=== PATIENT | female | born 1945 | race Caucasian/White ===

== ENCOUNTER 2021-05-22 04:53 | Inpatient (IN) | payer MEDICARE ==
[2021-05-22 05:04] VITALS: BMI 17.0
[2021-05-22] MEDS ORDERED: Ondansetron PF 4 MG/2 ML Vial IVP PRN (05:45)
[2021-05-22] MEDS ORDERED: Acetaminophen 325 MG TAB PO PRN (05:45)
[2021-05-22] MEDS ORDERED: Bisacodyl 5 MG TAB PO PRN (05:45)
[2021-05-22] MEDS ORDERED: Calcium Carbonate 500 MG ChewTAB PO PRN (05:45)
[2021-05-22] MEDS ORDERED: Guaifenesin DM 100-10/5 ML UDCUP PO PRN (05:45)
[2021-05-22] MEDS ORDERED: Sodium Chloride 0.9% 1,000 ML IV SCH (06:00)
[2021-05-22] MEDS ORDERED: Levothyroxine Sodium 25 MCG TAB PO SCH (06:00)
[2021-05-22 08:06] LABS: Syphilis Antibody Nonreactive (Nonreactive); Syphilis Antibody Index 0.06 S/CO (<1.00 Non-Reactive); Thyroid Stimulating Hormone 10.259 uIU/mL (0.35-4.94)
[2021-05-22] MEDS ORDERED: Aspirin 81 mg Enteric Coated Tablet PO SCH (09:00)
[2021-05-22] MEDS ORDERED: Enoxaparin Sodium 30 MG/0.3 ML SYRINGE SC SCH (09:00)
[2021-05-22] MEDS ORDERED: Escitalopram Oxalate 20 mg Tablet PO SCH (09:00)
[2021-05-22] MEDS ORDERED: Clopidogrel Bisulfate 75 MG TAB PO SCH (09:00)
[2021-05-22] MEDS ORDERED: Amlodipine 5 MG TAB PO SCH (09:00)
[2021-05-22] MEDS: Lisinopril 10 MG TAB PO SCH (10:18)
[2021-05-22] MEDS: Calcium Carbonate 600 MG + Vit D TAB PO SCH ×2 (10:18→17:01)
[2021-05-22] MEDS: Senokot S 8.6-50 MG TAB PO SCH ×2 (10:18→21:01)
[2021-05-22] MEDS: Nicotine 21 MG PATCH TD SCH (10:22)
[2021-05-22] MEDS: Mometasone/Formoterol 200/5 60 PUFF INH SCH ×2 (10:27→18:49)
[2021-05-22 10:52] LABS: Bilirubin Neg (Negative); Blood, Urine 10 (Negative); Clarity Clear (Clear); Glucose, Urine (Dipstick) Normal (Negative); Ketone, Urine 5 mg/dL (Negative); Leukocyte Negative (Negative); Nitrite Negative (Negative); Protein, Urine (Dipstick) Negative (Neg-Trace); Specific Gravity, Urine 1.005 (1.002-1.036); Urobilinogen Normal mg/dL (Less than 2)
[2021-05-22 11:17] LABS: Bacteria/HPF 3+ HPF (None Seen); RBC/HPF 0-3 HPF (0-3); Squamous Epithelial 0-3 HPF (0-3); WBC/HPF 0-3 HPF (0-3)
[2021-05-22] MEDS: Potassium Chloride 20 MEQ TAB PO SCH (21:01)
[2021-05-23] MEDS: Levothyroxine Sodium 75 MCG TAB PO SCH (05:23)
[2021-05-23 06:56] LABS: #Monocytes 0.6 10x3/uL (0.0-1.1); #Neutrophils 6.4 10x3/uL (1.5-8.4); %Basophils 0.3 % (0.0-2.0); %Lymphocytes 11.2 % (18.0-47.0); %Monocytes 7.3 % (0.0-10.0); %Neutrophils 80.9 % (40.0-75.0); Hemoglobin 11.8 g/dL (12.0-15.5); Mean Corpuscular HGB CONC 34.5 g/dL (32.0-36.0); Mean Corpuscular Hemoglobin 32.2 pg (27.0-33.0); Mean Corpuscular Volume 93.2 fl (81.6-98.3); Mean Platelet Volume 11.6 fl (7.4-10.4); Platelet Count 212 10x3/uL (150-450); RBC Distribution Width 13.7 % (11.5-14.5); Red Blood Cell (RBC) Count 3.67 10x6/uL (3.90-5.03); White Blood Cell (WBC) Count 7.9 10x3/uL (3.5-10.5)
[2021-05-23] MEDS: Mometasone/Formoterol 200/5 60 PUFF INH SCH ×2 (07:10→19:25)
[2021-05-23 07:11] LABS: Anion Gap 11 mmol/L (10-20); BUN (Urea Nitrogen) 18 mg/dL (9.8-20.1); CK (CPK) 754 U/L (29-168); Calc. Creatinine Clearance 43 mL/min (70-130); Calcium 8.3 mg/dL (7.8-10.44); Carbon Dioxide 24 mmol/L (23-31); Chloride 108 mmol/L (98-107); Glucose 98 mg/dL (83-110); Potassium 3.4 mmol/L (3.5-5.1); Sodium 140 mmol/L (136-145)
[2021-05-23] MEDS: Rosuvastatin 10 MG TAB PO SCH (09:56)
[2021-05-23] MEDS: Calcium Carbonate 600 MG + Vit D TAB PO SCH ×2 (09:56→16:31)
[2021-05-23] MEDS: Lisinopril 10 MG TAB PO SCH (09:56)
[2021-05-23] MEDS: Clopidogrel Bisulfate 75 MG TAB PO SCH (09:57)
[2021-05-23] MEDS: Senokot S 8.6-50 MG TAB PO SCH ×2 (09:57→20:31)
[2021-05-23] MEDS: Aspirin 81 mg Enteric Coated Tablet PO SCH (09:57)
[2021-05-23] MEDS: Potassium Chloride 20 MEQ TAB PO SCH ×2 (09:57→20:31)
[2021-05-23] MEDS: Folic Acid 1 MG TAB PO SCH (09:57)
[2021-05-23] MEDS: Escitalopram Oxalate 20 mg Tablet PO SCH (09:57)
[2021-05-23] MEDS: Nicotine 21 MG PATCH TD SCH (09:57)
[2021-05-23] MEDS: Amlodipine 5 MG TAB PO SCH (10:03)
[2021-05-24] MEDS: Levothyroxine Sodium 75 MCG TAB PO SCH (05:40)
[2021-05-24] MEDS: Mometasone/Formoterol 200/5 60 PUFF INH SCH ×2 (07:20→18:39)
[2021-05-24] MEDS: Nicotine 21 MG PATCH TD SCH (10:10)
[2021-05-24] MEDS: Amlodipine 5 MG TAB PO SCH (10:10)
[2021-05-24] MEDS: Senokot S 8.6-50 MG TAB PO SCH ×2 (10:10→21:19)
[2021-05-24] MEDS: Clopidogrel Bisulfate 75 MG TAB PO SCH (10:11)
[2021-05-24] MEDS: Rosuvastatin 10 MG TAB PO SCH (10:11)
[2021-05-24] MEDS: Folic Acid 1 MG TAB PO SCH (10:11)
[2021-05-24] MEDS: Escitalopram Oxalate 20 mg Tablet PO SCH (10:11)
[2021-05-24] MEDS: Aspirin 81 mg Enteric Coated Tablet PO SCH (10:11)
[2021-05-24] MEDS: Potassium Chloride 20 MEQ TAB PO SCH ×2 (10:11→20:29)
[2021-05-24] MEDS: Calcium Carbonate 600 MG + Vit D TAB PO SCH ×2 (10:12→17:54)
[2021-05-24] MEDS: Lisinopril 10 MG TAB PO SCH (10:21)
[2021-05-24] MEDS ORDERED: Fosfomycin 3 GM/Packet PO SCH (11:00)
[2021-05-24] MEDS: Melatonin 3 MG TAB PO SCH (20:29)
[2021-05-25] MEDS: Levothyroxine Sodium 100 MCG TAB PO SCH (05:54)
[2021-05-25] MEDS: Mometasone/Formoterol 200/5 60 PUFF INH SCH ×2 (07:20→18:50)
[2021-05-25] MEDS: Amlodipine 5 MG TAB PO SCH (10:50)
[2021-05-25] MEDS: Clopidogrel Bisulfate 75 MG TAB PO SCH (10:50)
[2021-05-25] MEDS: Aspirin 81 mg Enteric Coated Tablet PO SCH (10:50)
[2021-05-25] MEDS: Folic Acid 1 MG TAB PO SCH (10:50)
[2021-05-25] MEDS: Calcium Carbonate 600 MG + Vit D TAB PO SCH ×2 (10:50→20:56)
[2021-05-25] MEDS: Escitalopram Oxalate 20 mg Tablet PO SCH (10:50)
[2021-05-25] MEDS: Lisinopril 10 MG TAB PO SCH (10:51)
[2021-05-25] MEDS: Nicotine 21 MG PATCH TD SCH ×2 (10:51→15:49)
[2021-05-25] MEDS: Potassium Chloride 20 MEQ TAB PO SCH ×2 (10:51→20:56)
[2021-05-25] MEDS: Rosuvastatin 10 MG TAB PO SCH (10:51)
[2021-05-25] MEDS: Senokot S 8.6-50 MG TAB PO SCH ×2 (10:52→21:14)
[2021-05-25] MEDS ORDERED: Lorazepam 2 MG/ML VIAL SLOW IVP SCH ×2 (12:45→15:15)
[2021-05-25] MEDS ORDERED: Lorazepam 2 MG/ML VIAL ONE (14:37)
[2021-05-25 14:53] LABS: Hemoglobin 11.9 g/dL (12.0-15.5); Mean Corpuscular HGB CONC 33.5 g/dL (32.0-36.0); Mean Corpuscular Hemoglobin 31.8 pg (27.0-33.0); Mean Corpuscular Volume 94.9 fl (81.6-98.3); Mean Platelet Volume 11.9 fl (7.4-10.4); Platelet Count 223 10x3/uL (150-450); RBC Distribution Width 13.7 % (11.5-14.5); Red Blood Cell (RBC) Count 3.74 10x6/uL (3.90-5.03); White Blood Cell (WBC) Count 8.7 10x3/uL (3.5-10.5)
[2021-05-25 15:06] LABS: ALT (SGPT) 40 U/L (8-55); AST (SGOT) 55 U/L (5-34); Albumin 3.6 g/dL (3.4-4.8); Alkaline Phosphatase 56 U/L (40-110); Anion Gap 10 mmol/L (10-20); BUN (Urea Nitrogen) 14 mg/dL (9.8-20.1); Bilirubin, Total 0.4 mg/dL (0.2-1.2); Calc. Creatinine Clearance 42 mL/min (70-130); Calcium 8.8 mg/dL (7.8-10.44); Carbon Dioxide 28 mmol/L (23-31); Chloride 105 mmol/L (98-107); Globulin 2.2 g/dL (2.4-3.5); Glucose 90 mg/dL (83-110); Magnesium 1.7 mg/dL (1.6-2.6); Phosphorus 2.4 mg/dL (2.3-4.7); Potassium 4.4 mmol/L (3.5-5.1); Protein, Total 5.8 g/dL (5.8-8.1); Sodium 139 mmol/L (136-145)
[2021-05-25] MEDS ORDERED: levETIRAcetam 1,500 MG, Admixture Fee 1 EACH in Sodium Chloride 0.9% 100 ML IVPB SCH (15:30)
[2021-05-25] MEDS ORDERED: levETIRAcetam in NS 1,500 MG in Premix Bag 1 BAG IVPB SCH (15:30)
[2021-05-25] MEDS ORDERED: Magnesium 2 GM/50 ML(in water) 2 GM in Premix Bag 1 BAG IVPB SCH (15:45)
[2021-05-25] MEDS: Nitrofurantoin Macrocrystal 50 MG CAP PO SCH (20:56)
[2021-05-25] MEDS: Lorazepam 1 MG TAB PO SCH (20:57)
[2021-05-25] MEDS: Melatonin 3 MG TAB PO SCH (20:57)
[2021-05-26] MEDS: Mometasone/Formoterol 200/5 60 PUFF INH SCH ×2 (05:10→18:31)
[2021-05-26] MEDS: Levothyroxine Sodium 100 MCG TAB PO SCH (05:46)
[2021-05-26 06:35] LABS: #Eosinphils 0.1 10x3/uL (0.0-0.5); #Monocytes 0.7 10x3/uL (0.0-1.1); #Neutrophils 4.5 10x3/uL (1.5-8.4); %Basophils 0.5 % (0.0-2.0); %Eosinophils 1.7 % (0.0-6.0); %Lymphocytes 17.9 % (18.0-47.0); %Monocytes 10.3 % (0.0-10.0); %Neutrophils 69.3 % (40.0-75.0); Mean Corpuscular HGB CONC 34.6 g/dL (32.0-36.0); Mean Corpuscular Hemoglobin 32.4 pg (27.0-33.0); Mean Corpuscular Volume 93.8 fl (81.6-98.3); Mean Platelet Volume 11.4 fl (7.4-10.4); Platelet Count 201 10x3/uL (150-450); Red Blood Cell (RBC) Count 3.39 10x6/uL (3.90-5.03); White Blood Cell (WBC) Count 6.4 10x3/uL (3.5-10.5)
[2021-05-26 06:44] LABS: ALT (SGPT) 35 U/L (8-55); AST (SGOT) 39 U/L (5-34); Albumin 3.3 g/dL (3.4-4.8); Alkaline Phosphatase 51 U/L (40-110); Anion Gap 10 mmol/L (10-20); BUN (Urea Nitrogen) 13 mg/dL (9.8-20.1); Bilirubin, Total 0.4 mg/dL (0.2-1.2); Calc. Creatinine Clearance 43 mL/min (70-130); Calcium 8.7 mg/dL (7.8-10.44); Carbon Dioxide 27 mmol/L (23-31); Chloride 105 mmol/L (98-107); Glucose 91 mg/dL (83-110); Magnesium 2.2 mg/dL (1.6-2.6); Phosphorus 2.4 mg/dL (2.3-4.7); Potassium 4.2 mmol/L (3.5-5.1); Protein, Total 5.3 g/dL (5.8-8.1); Sodium 138 mmol/L (136-145)
[2021-05-26 07:07] LABS: HIV (1/2) Antibody/Antigen Non-Reactive (NonReactive); HIV 1/2 INDEX 0.07 S/CO (<1.00)
[2021-05-26] MEDS: Calcium Carbonate 600 MG + Vit D TAB PO SCH ×2 (11:21→18:27)
[2021-05-26] MEDS: Amlodipine 5 MG TAB PO SCH (11:21)
[2021-05-26] MEDS: Aspirin 81 mg Enteric Coated Tablet PO SCH (11:22)
[2021-05-26] MEDS: Clopidogrel Bisulfate 75 MG TAB PO SCH (11:22)
[2021-05-26] MEDS: Enoxaparin Sodium 30 MG/0.3 ML SYRINGE SC SCH (11:23)
[2021-05-26] MEDS: Folic Acid 1 MG TAB PO SCH (11:24)
[2021-05-26] MEDS: Escitalopram Oxalate 20 mg Tablet PO SCH (11:24)
[2021-05-26] MEDS: levETIRAcetam 500 MG in Sodium Chloride 0.9% 100 ML IVPB SCH ×2 (11:25→21:21)
[2021-05-26] MEDS: Lisinopril 10 MG TAB PO SCH (11:27)
[2021-05-26] MEDS: Lorazepam 1 MG TAB PO SCH ×2 (11:27→21:22)
[2021-05-26] MEDS: Nicotine 21 MG PATCH TD SCH (11:28)
[2021-05-26] MEDS: Nitrofurantoin Macrocrystal 50 MG CAP PO SCH ×2 (11:28→21:22)
[2021-05-26] MEDS: Potassium Chloride 20 MEQ TAB PO SCH ×2 (11:28→21:22)
[2021-05-26] MEDS: Rosuvastatin 10 MG TAB PO SCH (11:29)
[2021-05-26] MEDS: Senokot S 8.6-50 MG TAB PO SCH ×2 (11:54→21:23)
[2021-05-26] MEDS ORDERED: Cyanocobalamin 1000 MCG/ML VIAL IM SCH (15:45)
[2021-05-26] MEDS: Cyanocobalamin 1000 MCG/ML VIAL IM SCH (18:27)
[2021-05-26] MEDS: Melatonin 3 MG TAB PO SCH (21:22)
[2021-05-27 05:50] LABS: #Eosinphils 0.1 10x3/uL (0.0-0.5); #Monocytes 0.6 10x3/uL (0.0-1.1); #Neutrophils 3.4 10x3/uL (1.5-8.4); %Basophils 0.6 % (0.0-2.0); %Eosinophils 2.3 % (0.0-6.0); %Monocytes 10.5 % (0.0-10.0); %Neutrophils 65.4 % (40.0-75.0); Hemoglobin 10.7 g/dL (12.0-15.5); Mean Corpuscular HGB CONC 34.4 g/dL (32.0-36.0); Mean Corpuscular Hemoglobin 32.4 pg (27.0-33.0); Mean Corpuscular Volume 94.2 fl (81.6-98.3); Mean Platelet Volume 11.5 fl (7.4-10.4); Platelet Count 205 10x3/uL (150-450); White Blood Cell (WBC) Count 5.2 10x3/uL (3.5-10.5)
[2021-05-27 06:03] LABS: Anion Gap 10 mmol/L (10-20); BUN (Urea Nitrogen) 17 mg/dL (9.8-20.1); Calc. Creatinine Clearance 40 mL/min (70-130); Calcium 8.6 mg/dL (7.8-10.44); Carbon Dioxide 27 mmol/L (23-31); Chloride 107 mmol/L (98-107); Glucose 96 mg/dL (83-110); Phosphorus 2.4 mg/dL (2.3-4.7); Potassium 4.3 mmol/L (3.5-5.1); Sodium 140 mmol/L (136-145)
[2021-05-27] MEDS: Levothyroxine Sodium 100 MCG TAB PO SCH (06:22)
[2021-05-27] MEDS: Mometasone/Formoterol 200/5 60 PUFF INH SCH ×2 (07:45→19:09)
[2021-05-27] MEDS: Senokot S 8.6-50 MG TAB PO SCH ×3 (09:02→22:54)
[2021-05-27] MEDS: Rosuvastatin 10 MG TAB PO SCH (09:03)
[2021-05-27] MEDS: Escitalopram Oxalate 20 mg Tablet PO SCH (09:03)
[2021-05-27] MEDS: Clopidogrel Bisulfate 75 MG TAB PO SCH (09:03)
[2021-05-27] MEDS: Folic Acid 1 MG TAB PO SCH (09:03)
[2021-05-27] MEDS: Aspirin 81 mg Enteric Coated Tablet PO SCH (09:03)
[2021-05-27] MEDS: Potassium Chloride 20 MEQ TAB PO SCH ×2 (09:04→20:58)
[2021-05-27] MEDS: Calcium Carbonate 600 MG + Vit D TAB PO SCH ×2 (09:04→16:51)
[2021-05-27] MEDS: Amlodipine 5 MG TAB PO SCH (09:04)
[2021-05-27] MEDS: Enoxaparin Sodium 30 MG/0.3 ML SYRINGE SC SCH (09:05)
[2021-05-27] MEDS: Nicotine 21 MG PATCH TD SCH (09:05)
[2021-05-27] MEDS: Lisinopril 10 MG TAB PO SCH (09:05)
[2021-05-27] MEDS: Nitrofurantoin Macrocrystal 50 MG CAP PO SCH ×2 (09:05→20:57)
[2021-05-27] MEDS: levETIRAcetam 500 MG in Sodium Chloride 0.9% 100 ML IVPB SCH ×2 (09:06→21:00)
[2021-05-27] MEDS: Lorazepam 1 MG TAB PO SCH ×2 (09:06→20:58)
[2021-05-27] MEDS: Melatonin 3 MG TAB PO SCH (20:58)
[2021-05-28 05:39] LABS: #Eosinphils 0.1 10x3/uL (0.0-0.5); #Monocytes 0.6 10x3/uL (0.0-1.1); #Neutrophils 3.8 10x3/uL (1.5-8.4); %Basophils 0.5 % (0.0-2.0); %Eosinophils 1.6 % (0.0-6.0); %Lymphocytes 20.4 % (18.0-47.0); %Monocytes 10.7 % (0.0-10.0); %Neutrophils 66.6 % (40.0-75.0); Hemoglobin 10.6 g/dL (12.0-15.5); Mean Corpuscular HGB CONC 33.8 g/dL (32.0-36.0); Mean Corpuscular Hemoglobin 32.1 pg (27.0-33.0); Mean Corpuscular Volume 95.2 fl (81.6-98.3); Platelet Count 224 10x3/uL (150-450); RBC Distribution Width 14.2 % (11.5-14.5); White Blood Cell (WBC) Count 5.7 10x3/uL (3.5-10.5)
[2021-05-28 06:09] LABS: Anion Gap 11 mmol/L (10-20); BUN (Urea Nitrogen) 22 mg/dL (9.8-20.1); Calc. Creatinine Clearance 39 mL/min (70-130); Calcium 9.1 mg/dL (7.8-10.44); Carbon Dioxide 27 mmol/L (23-31); Chloride 104 mmol/L (98-107); Glucose 93 mg/dL (83-110); Magnesium 1.9 mg/dL (1.6-2.6); Phosphorus 2.9 mg/dL (2.3-4.7); Potassium 4.5 mmol/L (3.5-5.1); Sodium 137 mmol/L (136-145)
[2021-05-28] MEDS: Levothyroxine Sodium 100 MCG TAB PO SCH (06:12)
[2021-05-28] MEDS: Mometasone/Formoterol 200/5 60 PUFF INH SCH ×2 (09:05→19:20)
[2021-05-28] MEDS: Calcium Carbonate 600 MG + Vit D TAB PO SCH ×2 (09:19→17:02)
[2021-05-28] MEDS: Escitalopram Oxalate 20 mg Tablet PO SCH (09:20)
[2021-05-28] MEDS: Aspirin 81 mg Enteric Coated Tablet PO SCH (09:20)
[2021-05-28] MEDS: Rosuvastatin 10 MG TAB PO SCH (09:20)
[2021-05-28] MEDS: Lorazepam 1 MG TAB PO SCH ×2 (09:21→20:56)
[2021-05-28] MEDS: Nitrofurantoin Macrocrystal 50 MG CAP PO SCH ×2 (09:22→20:56)
[2021-05-28] MEDS: Folic Acid 1 MG TAB PO SCH (09:23)
[2021-05-28] MEDS: Lisinopril 10 MG TAB PO SCH (09:23)
[2021-05-28] MEDS: Potassium Chloride 20 MEQ TAB PO SCH ×2 (09:23→20:56)
[2021-05-28] MEDS: Amlodipine 5 MG TAB PO SCH (09:23)
[2021-05-28] MEDS: Enoxaparin Sodium 30 MG/0.3 ML SYRINGE SC SCH (09:24)
[2021-05-28] MEDS: levETIRAcetam 500 MG in Sodium Chloride 0.9% 100 ML IVPB SCH ×2 (09:25→21:01)
[2021-05-28] MEDS: Senokot S 8.6-50 MG TAB PO SCH ×2 (09:26→21:27)
[2021-05-28] MEDS: Clopidogrel Bisulfate 75 MG TAB PO SCH (09:27)
[2021-05-28] MEDS: Nicotine 21 MG PATCH TD SCH (12:04)
[2021-05-28] MEDS: Cyanocobalamin 1000 MCG/ML VIAL IM SCH (17:03)
[2021-05-28] MEDS: Melatonin 3 MG TAB PO SCH (20:56)
[2021-05-29 05:40] LABS: #Eosinphils 0.1 10x3/uL (0.0-0.5); #Monocytes 0.6 10x3/uL (0.0-1.1); #Neutrophils 3.7 10x3/uL (1.5-8.4); %Basophils 0.5 % (0.0-2.0); %Eosinophils 2.2 % (0.0-6.0); %Lymphocytes 19.2 % (18.0-47.0); %Monocytes 11.3 % (0.0-10.0); %Neutrophils 66.4 % (40.0-75.0); Hemoglobin 10.9 g/dL (12.0-15.5); Mean Corpuscular HGB CONC 34.2 g/dL (32.0-36.0); Mean Corpuscular Hemoglobin 32.2 pg (27.0-33.0); Mean Corpuscular Volume 94.4 fl (81.6-98.3); Mean Platelet Volume 11.8 fl (7.4-10.4); Platelet Count 257 10x3/uL (150-450); RBC Distribution Width 14.2 % (11.5-14.5); Red Blood Cell (RBC) Count 3.38 10x6/uL (3.90-5.03); White Blood Cell (WBC) Count 5.6 10x3/uL (3.5-10.5)
[2021-05-29 05:50] LABS: Anion Gap 13 mmol/L (10-20); BUN (Urea Nitrogen) 22 mg/dL (9.8-20.1); Calc. Creatinine Clearance 43 mL/min (70-130); Calcium 9.1 mg/dL (7.8-10.44); Carbon Dioxide 24 mmol/L (23-31); Chloride 105 mmol/L (98-107); Glucose 96 mg/dL (83-110); Magnesium 1.8 mg/dL (1.6-2.6); Phosphorus 3.9 mg/dL (2.3-4.7); Potassium 4.7 mmol/L (3.5-5.1); Sodium 137 mmol/L (136-145)
[2021-05-29] MEDS: Levothyroxine Sodium 100 MCG TAB PO SCH (06:20)
[2021-05-29] MEDS: Mometasone/Formoterol 200/5 60 PUFF INH SCH ×2 (07:35→19:50)
[2021-05-29] MEDS: Folic Acid 1 MG TAB PO SCH (09:25)
[2021-05-29] MEDS: Clopidogrel Bisulfate 75 MG TAB PO SCH (09:25)
[2021-05-29] MEDS: Potassium Chloride 20 MEQ TAB PO SCH ×2 (09:25→20:24)
[2021-05-29] MEDS: Nitrofurantoin Macrocrystal 50 MG CAP PO SCH ×2 (09:25→20:23)
[2021-05-29] MEDS: Rosuvastatin 10 MG TAB PO SCH (09:25)
[2021-05-29] MEDS: Aspirin 81 mg Enteric Coated Tablet PO SCH (09:26)
[2021-05-29] MEDS: Amlodipine 5 MG TAB PO SCH (09:26)
[2021-05-29] MEDS: Lorazepam 1 MG TAB PO SCH ×2 (09:26→20:24)
[2021-05-29] MEDS: Calcium Carbonate 600 MG + Vit D TAB PO SCH ×2 (09:26→18:07)
[2021-05-29] MEDS: Escitalopram Oxalate 20 mg Tablet PO SCH (09:27)
[2021-05-29] MEDS: Lisinopril 10 MG TAB PO SCH (09:27)
[2021-05-29] MEDS: levETIRAcetam 500 MG in Sodium Chloride 0.9% 100 ML IVPB SCH ×2 (09:27→20:23)
[2021-05-29] MEDS: Enoxaparin Sodium 30 MG/0.3 ML SYRINGE SC SCH (09:27)
[2021-05-29] MEDS: Senokot S 8.6-50 MG TAB PO SCH ×2 (09:28→20:24)
[2021-05-29] MEDS: Nicotine 21 MG PATCH TD SCH (12:14)
[2021-05-29] MEDS: Melatonin 3 MG TAB PO SCH (20:24)
[2021-05-30 05:08] LABS: #Eosinphils 0.1 10x3/uL (0.0-0.5); #Monocytes 0.7 10x3/uL (0.0-1.1); #Neutrophils 3.8 10x3/uL (1.5-8.4); %Basophils 0.5 % (0.0-2.0); %Eosinophils 2.3 % (0.0-6.0); %Lymphocytes 17.5 % (18.0-47.0); %Monocytes 12.8 % (0.0-10.0); %Neutrophils 66.6 % (40.0-75.0); Hemoglobin 10.9 g/dL (12.0-15.5); Mean Corpuscular HGB CONC 34.7 g/dL (32.0-36.0); Mean Corpuscular Hemoglobin 33.2 pg (27.0-33.0); Mean Corpuscular Volume 95.7 fl (81.6-98.3); Mean Platelet Volume 11.9 fl (7.4-10.4); Platelet Count 252 10x3/uL (150-450); RBC Distribution Width 14.4 % (11.5-14.5); Red Blood Cell (RBC) Count 3.28 10x6/uL (3.90-5.03); White Blood Cell (WBC) Count 5.8 10x3/uL (3.5-10.5)
[2021-05-30 05:09] LABS: Anion Gap 11 mmol/L (10-20); BUN (Urea Nitrogen) 24 mg/dL (9.8-20.1); Calc. Creatinine Clearance 40 mL/min (70-130); Calcium 9.5 mg/dL (7.8-10.44); Carbon Dioxide 27 mmol/L (23-31); Chloride 103 mmol/L (98-107); Glucose 95 mg/dL (83-110); Magnesium 1.9 mg/dL (1.6-2.6); Phosphorus 4.4 mg/dL (2.3-4.7); Sodium 136 mmol/L (136-145)
[2021-05-30] MEDS: Levothyroxine Sodium 100 MCG TAB PO SCH (05:29)
[2021-05-30] MEDS: Mometasone/Formoterol 200/5 60 PUFF INH SCH ×2 (06:51→20:02)
[2021-05-30] MEDS: Calcium Carbonate 600 MG + Vit D TAB PO SCH ×2 (08:43→17:52)
[2021-05-30] MEDS: Lisinopril 10 MG TAB PO SCH (08:43)
[2021-05-30] MEDS: Enoxaparin Sodium 40 MG/0.4 ML SYRINGE SC SCH (08:43)
[2021-05-30] MEDS: levETIRAcetam 500 MG in Sodium Chloride 0.9% 100 ML IVPB SCH (08:43)
[2021-05-30] MEDS: Amlodipine 5 MG TAB PO SCH (08:43)
[2021-05-30] MEDS: Clopidogrel Bisulfate 75 MG TAB PO SCH (08:43)
[2021-05-30] MEDS: Lorazepam 1 MG TAB PO SCH ×2 (08:43→20:22)
[2021-05-30] MEDS: Folic Acid 1 MG TAB PO SCH (08:43)
[2021-05-30] MEDS: Escitalopram Oxalate 20 mg Tablet PO SCH (08:43)
[2021-05-30] MEDS: Aspirin 81 mg Enteric Coated Tablet PO SCH (08:43)
[2021-05-30] MEDS: Senokot S 8.6-50 MG TAB PO SCH ×2 (08:44→20:21)
[2021-05-30] MEDS: Nitrofurantoin Macrocrystal 50 MG CAP PO SCH (08:44)
[2021-05-30] MEDS: Rosuvastatin 10 MG TAB PO SCH (08:44)
[2021-05-30] MEDS: Nicotine 21 MG PATCH TD SCH (08:44)
[2021-05-30] MEDS: Cyanocobalamin 1000 MCG/ML VIAL IM SCH (17:52)
[2021-05-30] MEDS: levETIRAcetam 500 MG TAB PO SCH (20:21)
[2021-05-30] MEDS: Melatonin 3 MG TAB PO SCH (20:22)
[2021-05-31 03:56] LABS: #Eosinphils 0.1 10x3/uL (0.0-0.5); #Monocytes 0.7 10x3/uL (0.0-1.1); #Neutrophils 3.8 10x3/uL (1.5-8.4); %Basophils 0.5 % (0.0-2.0); %Eosinophils 2.1 % (0.0-6.0); %Lymphocytes 17.5 % (18.0-47.0); %Monocytes 12.8 % (0.0-10.0); %Neutrophils 66.7 % (40.0-75.0); Hemoglobin 10.8 g/dL (12.0-15.5); Mean Corpuscular HGB CONC 34.5 g/dL (32.0-36.0); Mean Corpuscular Hemoglobin 32.8 pg (27.0-33.0); Mean Corpuscular Volume 95.1 fl (81.6-98.3); Mean Platelet Volume 11.4 fl (7.4-10.4); Platelet Count 282 10x3/uL (150-450); RBC Distribution Width 14.4 % (11.5-14.5); Red Blood Cell (RBC) Count 3.29 10x6/uL (3.90-5.03); White Blood Cell (WBC) Count 5.7 10x3/uL (3.5-10.5)
[2021-05-31 04:20] LABS: Anion Gap 12 mmol/L (10-20); BUN (Urea Nitrogen) 27 mg/dL (9.8-20.1); Calc. Creatinine Clearance 41 mL/min (70-130); Calcium 9.3 mg/dL (7.8-10.44); Carbon Dioxide 27 mmol/L (23-31); Chloride 104 mmol/L (98-107); Glucose 93 mg/dL (83-110); Magnesium 1.9 mg/dL (1.6-2.6); Phosphorus 4.1 mg/dL (2.3-4.7); Potassium 4.6 mmol/L (3.5-5.1); Sodium 138 mmol/L (136-145)
[2021-05-31] MEDS: Levothyroxine Sodium 100 MCG TAB PO SCH (05:44)
[2021-05-31] MEDS: Mometasone/Formoterol 200/5 60 PUFF INH SCH ×2 (07:50→19:50)
[2021-05-31] MEDS: Nitrofurantoin Macrocrystal 50 MG CAP PO SCH (09:56)
[2021-05-31] MEDS: Folic Acid 1 MG TAB PO SCH (09:56)
[2021-05-31] MEDS: Rosuvastatin 10 MG TAB PO SCH (09:56)
[2021-05-31] MEDS: Aspirin 81 mg Enteric Coated Tablet PO SCH (09:58)
[2021-05-31] MEDS: levETIRAcetam 500 MG TAB PO SCH ×2 (09:58→20:24)
[2021-05-31] MEDS: Amlodipine 5 MG TAB PO SCH (09:58)
[2021-05-31] MEDS: Calcium Carbonate 600 MG + Vit D TAB PO SCH ×2 (09:58→18:35)
[2021-05-31] MEDS: Lorazepam 1 MG TAB PO SCH ×2 (09:58→20:24)
[2021-05-31] MEDS: Enoxaparin Sodium 40 MG/0.4 ML SYRINGE SC SCH (09:59)
[2021-05-31] MEDS: Senokot S 8.6-50 MG TAB PO SCH ×2 (10:10→20:24)
[2021-05-31] MEDS: Escitalopram Oxalate 20 mg Tablet PO SCH (10:10)
[2021-05-31] MEDS: Nicotine 21 MG PATCH TD SCH (10:24)
[2021-05-31] MEDS: Melatonin 3 MG TAB PO SCH (20:24)
[2021-06-01 04:49] LABS: #Eosinphils 0.1 10x3/uL (0.0-0.5); #Monocytes 0.7 10x3/uL (0.0-1.1); #Neutrophils 3.7 10x3/uL (1.5-8.4); %Basophils 0.6 % (0.0-2.0); %Eosinophils 1.7 % (0.0-6.0); %Lymphocytes 17.1 % (18.0-47.0); %Monocytes 12.5 % (0.0-10.0); %Neutrophils 67.7 % (40.0-75.0); Hemoglobin 10.5 g/dL (12.0-15.5); Mean Corpuscular HGB CONC 34.1 g/dL (32.0-36.0); Mean Corpuscular Hemoglobin 32.7 pg (27.0-33.0); Mean Platelet Volume 11.1 fl (7.4-10.4); Platelet Count 273 10x3/uL (150-450); RBC Distribution Width 14.4 % (11.5-14.5); Red Blood Cell (RBC) Count 3.21 10x6/uL (3.90-5.03); White Blood Cell (WBC) Count 5.4 10x3/uL (3.5-10.5)
[2021-06-01] MEDS: Levothyroxine Sodium 100 MCG TAB PO SCH (05:37)
[2021-06-01 06:09] LABS: Anion Gap 12 mmol/L (10-20); BUN (Urea Nitrogen) 28 mg/dL (9.8-20.1); Calc. Creatinine Clearance 40 mL/min (70-130); Calcium 9.1 mg/dL (7.8-10.44); Carbon Dioxide 26 mmol/L (23-31); Chloride 103 mmol/L (98-107); Glucose 89 mg/dL (83-110); Magnesium 1.9 mg/dL (1.6-2.6); Phosphorus 3.8 mg/dL (2.3-4.7); Potassium 4.4 mmol/L (3.5-5.1); Sodium 137 mmol/L (136-145)
[2021-06-01] MEDS: Mometasone/Formoterol 200/5 60 PUFF INH SCH ×2 (07:55→21:55)
[2021-06-01] MEDS: levETIRAcetam 500 MG TAB PO SCH ×2 (09:33→20:54)
[2021-06-01] MEDS: Lorazepam 1 MG TAB PO SCH ×2 (09:33→20:54)
[2021-06-01] MEDS: Nitrofurantoin Macrocrystal 50 MG CAP PO SCH (09:33)
[2021-06-01] MEDS: Folic Acid 1 MG TAB PO SCH (09:33)
[2021-06-01] MEDS: Aspirin 81 mg Enteric Coated Tablet PO SCH (09:33)
[2021-06-01] MEDS: Rosuvastatin 10 MG TAB PO SCH (09:34)
[2021-06-01] MEDS: Senokot S 8.6-50 MG TAB PO SCH ×3 (09:34→20:53)
[2021-06-01] MEDS: Amlodipine 5 MG TAB PO SCH (09:34)
[2021-06-01] MEDS: Enoxaparin Sodium 40 MG/0.4 ML SYRINGE SC SCH (09:35)
[2021-06-01] MEDS: Nicotine 21 MG PATCH TD SCH (09:38)
[2021-06-01] MEDS: Escitalopram Oxalate 20 mg Tablet PO SCH (09:38)
[2021-06-01] MEDS: Cyanocobalamin 1000 MCG/ML VIAL IM SCH (17:43)
[2021-06-01] MEDS: Melatonin 3 MG TAB PO SCH (20:53)
[2021-06-02 03:55] LABS: #Eosinphils 0.1 10x3/uL (0.0-0.5); #Monocytes 0.7 10x3/uL (0.0-1.1); #Neutrophils 3.8 10x3/uL (1.5-8.4); %Basophils 0.5 % (0.0-2.0); %Eosinophils 2.1 % (0.0-6.0); %Lymphocytes 18.1 % (18.0-47.0); %Monocytes 11.7 % (0.0-10.0); %Neutrophils 67.2 % (40.0-75.0); Hemoglobin 10.2 g/dL (12.0-15.5); Mean Corpuscular HGB CONC 34.1 g/dL (32.0-36.0); Mean Corpuscular Hemoglobin 33.1 pg (27.0-33.0); Mean Corpuscular Volume 97.1 fl (81.6-98.3); Mean Platelet Volume 11.2 fl (7.4-10.4); Platelet Count 261 10x3/uL (150-450); RBC Distribution Width 14.4 % (11.5-14.5); Red Blood Cell (RBC) Count 3.08 10x6/uL (3.90-5.03); White Blood Cell (WBC) Count 5.6 10x3/uL (3.5-10.5)
[2021-06-02 04:08] LABS: Anion Gap 11 mmol/L (10-20); BUN (Urea Nitrogen) 33 mg/dL (9.8-20.1); Calc. Creatinine Clearance 44 mL/min (70-130); Calcium 8.9 mg/dL (7.8-10.44); Carbon Dioxide 25 mmol/L (23-31); Chloride 105 mmol/L (98-107); Glucose 91 mg/dL (83-110); Magnesium 1.9 mg/dL (1.6-2.6); Phosphorus 3.5 mg/dL (2.3-4.7); Potassium 4.3 mmol/L (3.5-5.1); Sodium 137 mmol/L (136-145)
[2021-06-02] MEDS: Levothyroxine Sodium 100 MCG TAB PO SCH (05:49)
[2021-06-02] MEDS: Mometasone/Formoterol 200/5 60 PUFF INH SCH ×2 (07:45→19:10)
[2021-06-02] MEDS ORDERED: Cyanocobalamin (Vitamin B-12) 1,000 MCG TAB PO SCH (09:00)
[2021-06-02] MEDS: Lorazepam 1 MG TAB PO SCH ×2 (09:57→20:21)
[2021-06-02] MEDS: Escitalopram Oxalate 20 mg Tablet PO SCH (09:57)
[2021-06-02] MEDS: levETIRAcetam 500 MG TAB PO SCH ×2 (09:57→20:21)
[2021-06-02] MEDS: Rosuvastatin 10 MG TAB PO SCH (09:57)
[2021-06-02] MEDS: Enoxaparin Sodium 40 MG/0.4 ML SYRINGE SC SCH (09:57)
[2021-06-02] MEDS: Folic Acid 1 MG TAB PO SCH (09:57)
[2021-06-02] MEDS: Amlodipine 5 MG TAB PO SCH (09:58)
[2021-06-02] MEDS: Senokot S 8.6-50 MG TAB PO SCH ×2 (09:58→20:20)
[2021-06-02] MEDS: Aspirin 81 mg Enteric Coated Tablet PO SCH (09:58)
[2021-06-02] MEDS: Nitrofurantoin Macrocrystal 50 MG CAP PO SCH (10:01)
[2021-06-02] MEDS: Nicotine 21 MG PATCH TD SCH (10:02)
[2021-06-02] MEDS: Melatonin 3 MG TAB PO SCH (20:21)
[2021-06-03] MEDS: Levothyroxine Sodium 100 MCG TAB PO SCH (06:23)
[2021-06-03] MEDS: Mometasone/Formoterol 200/5 60 PUFF INH SCH (08:00)
[2021-06-03 08:11] VITALS: BP 122/65; TEMP 98.2
[2021-06-03] MEDS: Senokot S 8.6-50 MG TAB PO SCH (08:34)
[2021-06-03] MEDS: Nicotine 21 MG PATCH TD SCH (08:35)
[2021-06-03] MEDS: Escitalopram Oxalate 20 mg Tablet PO SCH (08:35)
[2021-06-03] MEDS: levETIRAcetam 500 MG TAB PO SCH (08:35)
[2021-06-03] MEDS: Amlodipine 5 MG TAB PO SCH (08:35)
[2021-06-03] MEDS: Rosuvastatin 10 MG TAB PO SCH (08:36)
[2021-06-03] MEDS: Folic Acid 1 MG TAB PO SCH (08:36)
[2021-06-03] MEDS: Lorazepam 1 MG TAB PO SCH (08:36)
[2021-06-03] MEDS: Aspirin 81 mg Enteric Coated Tablet PO SCH (08:36)
[2021-06-03] MEDS: Nitrofurantoin Macrocrystal 50 MG CAP PO SCH (08:37)
[2021-06-03] MEDS: Enoxaparin Sodium 40 MG/0.4 ML SYRINGE SC SCH (08:37)
== END 2021-06-03 11:30 | DRG 689 ==
LOC: CSHTELE 04:53 → OBSVTOIN 17:29
PROVIDERS: ADMIT Student in an Organized Health Care Education/Training Program; ATTEND Family Medicine
DX: N39.0 Urinary tract infection, site not specified (principal); E43 Unspecified severe protein-calorie malnutrition; G93.41 Metabolic encephalopathy; R64 Cachexia; Z68.1 Body mass index [BMI] 19.9 or less, adult; G24.8 Other dystonia; F19.239 Other psychoactive substance dependence with withdrawal, unspecified; E03.9 Hypothyroidism, unspecified; R55 Syncope and collapse; J44.9 Chronic obstructive pulmonary disease, unspecified; F41.9 Anxiety disorder, unspecified; R77.8 Other specified abnormalities of plasma proteins; R26.9 Unspecified abnormalities of gait and mobility; F03.90 Unspecified dementia, unspecified severity, without behavioral disturbance, psychotic disturbance, mood disturbance, and anxiety; E78.2 Mixed hyperlipidemia; T79.6XXA Traumatic ischemia of muscle, initial encounter; W01.0XXA Fall on same level from slipping, tripping and stumbling without subsequent striking against object, initial encounter; I12.9 Hypertensive chronic kidney disease with stage 1 through stage 4 chronic kidney disease, or unspecified chronic kidney disease; N18.2 Chronic kidney disease, stage 2 (mild); R94.31 Abnormal electrocardiogram [ECG] [EKG]; G47.00 Insomnia, unspecified; E53.8 Deficiency of other specified B group vitamins; F17.210 Nicotine dependence, cigarettes, uncomplicated; F32.A Depression, unspecified; R56.9 Unspecified convulsions; R29.6 Repeated falls; M48.02 Spinal stenosis, cervical region; B95.2 Enterococcus as the cause of diseases classified elsewhere; M21.371 Foot drop, right foot; I25.10 Atherosclerotic heart disease of native coronary artery without angina pectoris; Z95.5 Presence of coronary angioplasty implant and graft; Z86.73 Personal history of transient ischemic attack (TIA), and cerebral infarction without residual deficits; Z88.0 Allergy status to penicillin; Z91.041 Radiographic dye allergy status; Z90.49 Acquired absence of other specified parts of digestive tract; Z79.899 Other long term (current) drug therapy; S00.512A Abrasion of oral cavity, initial encounter; R07.89 Other chest pain; Z20.822 Contact with and (suspected) exposure to COVID-19; I25.2 Old myocardial infarction; Z79.82 Long term (current) use of aspirin; Y92.009 Unspecified place in unspecified non-institutional (private) residence as the place of occurrence of the external cause
CPT/HCPCS: 36415; 36416; 70450; 70551; 71045; 72125; 72141; 72146; 72148; 76705; 80048; 80053; 81001; 82140; 82306; 82550; 82553; 82607; 82746; 83605; 83690; 83735; 83880; 84100; 84439; 84443; 84484; 85025; 85027; 86780; 87040; 87077; 87086; 87186; 87389; 93005; 93010; 93306; 93880; 94664; 94760; G0378; J1650; J1953; J1956; J2060; J3420; J3475; J3490; J7050; U0002